=== PATIENT | male | born 1965 | race Caucasian/White ===

== ENCOUNTER 2017-06-24 03:02 | Emergency (ER) | payer OTHER ==
[2017-06-24] MEDS ORDERED: IPRATROPIUM/ALBUTEROL 3 ML NEB INH STA (03:21)
[2017-06-24] MEDS ORDERED: IPRATROPIUM/ALBUTEROL 3 ML NEB INH ONE (03:36)
[2017-06-24 03:41] LABS: BASOPHILS # (AUTO) 0.1 10^3/uL (0.0-0.1); BASOPHILS % (AUTO) 1.1 %; EOSINOPHILS # (AUTO) 0.4 10^3/uL (0.0-0.7); EOSINOPHILS % (AUTO) 5.4 %; HCT - HEMATOCRIT 46.1 % (42.0-52.0); HGB - HEMOGLOBIN 15.9 g/dL (14.0-18.0); LYMPHOCYTES # (AUTO) 2.8 10^3/uL (1.5-3.5); LYMPHOCYTES % (AUTO) 40.3 %; MEAN CORPUSCULAR HEMOGLOBIN 31.2 pg (27.0-31.0); MEAN CORPUSCULAR HGB CONC 34.4 g/dL (32.0-36.0); MEAN CORPUSCULAR VOLUME 90.6 fL (80.0-94.0); MEAN PLATELET VOLUME 7.6 fL (7.4-11.4); MONOCYTES # (AUTO) 0.8 10^3/uL (0.0-1.0); MONOCYTES % (AUTO) 11.4 %; NEUTROPHILS # (AUTO) 2.9 10^3/uL (1.5-6.6); NEUTROPHILS % (AUTO) 41.8 %; NUCLEATED RED BLOOD CELLS AUTO 0.1 /100WBC; RED BLOOD COUNT 5.09 10^6/uL (4.70-6.10)
--- NOTE | 2017-06-24 03:49 | ED Physician Documentation ---
PD HPI DYSPNEA - Stated complaint Stated Complaint: [facility] - Chief complaint Chief Complaint: Resp - History obtained from History obtained from: Patient - History of Present Illness Timing - onset: How many weeks ago (1) Timing - onset during: Rest Timing - details: Now resolved Improved by: No: O2 Associated symptoms: No: Fever, Wheezing Similar symptoms before: No diagnosis, Work up / diagnostics Recently seen: Not recently seen - Additional information Additional information: Patient is a 51 year old male with no significant past medical history who is presenting to the emergency department for left sided abnormal lung sounds. Patient states that it has been going on for about a week and it has become progressively worse. Patient states that he went to see his doctor who did a chest x-ray and it was within normal limits. Patient states that he was started on doxy for atypical pneumonia, but it didn't respond and it kept getting worse. Patient was worried about a possible blood clot so he wanted to come get checked. Review of Systems Constitutional: denies: Fever, Chills Eyes: reports: Reviewed and negative Ears: reports: Reviewed and negative Nose: reports: Reviewed and negative Throat: denies: Oral lesions / sores, Sore throat Cardiac: denies: Chest pain / pressure, Palpitations, Pedal edema Respiratory: reports: Cough, Wheezing GI: denies: Nausea, Vomiting : reports: Reviewed and negative Skin: denies: Rash, Lesions Musculoskeletal: denies: Neck pain, Back pain, Extremity pain, Extremity swelling Neurologic: reports: Reviewed and negative Psychiatric: reports: Reviewed and negative Endocrine: reports: Reviewed and negative Immunocompromised: denies: Immunocompromised PD PAST MEDICAL HISTORY - Past Medical History Past Medical History: Yes Cardiovascular: High cholesterol - Past Surgical History Past Surgical History: Yes General: Appendectomy - Present Medications Home Medications: Ambulatory Orders Medication Instructions Recorded Confirmed Atenolol 1 tab PO DAILY 06/24/17 06/24/17 - Allergies Allergies/Adverse Reactions: Allergies Allergy/AdvReac Type Severity Reaction Status Date / Time No Known Drug Allergies Allergy Verified 06/24/17 03:47 - Social History Does the pt smoke?: No Smoking Status: Never smoker Does the pt drink ETOH?: Yes Does the pt have substance abuse?: No - Immunizations Immunizations are current?: Yes - POLST Patient has POLST: No PD ED PE NORMAL - Vitals Vital signs reviewed: Yes - General General: Alert and oriented X 3, No acute distress, Well developed/nourished - HEENT HEENT: Atraumatic, PERRL, Pharynx benign - Neck Neck: Supple, no meningeal sign, No JVD - Abdomen Abdomen: Soft, Non tender, Non distended - Derm Derm: Normal color, Warm and dry, No rash - Extremities Extremities: No deformity, Normal ROM s pain, No edema, No calf tenderness / cord - Neuro Neuro: Alert and oriented X 3, No motor deficit, No sensory deficit, Normal speech - Psych Psych: Normal mood, Normal affect PD ED PE EXPANDED - Cardiac Cardiac: Tachy - Respiratory Respiratory: Rhonchi, Left upper lobe, Left lower lobe Results - Vitals Vitals: Vital Signs - 24 hr 06/24/17 06/24/17 06/24/17 03:05 03:30 03:41 Temperature 36.4 C L Heart Rate 116 H 92 95 Respiratory 16 16 14 Rate Blood Pressure 147/87 H 125/85 H O2 Saturation 99 99 Oxygen O2 Source Room air - EKG (time done) 0316 Rate: Rate (enter#) (117) Rhythm: Sinus tachycardia [place]: Normal Compare to prior EKG: Old EKG unavailable - Labs Labs: Laboratory Tests 06/24/17 06/24/17 06/24/17 03:23 03:23 03:23 WBC 7.0 RBC 5.09 Hgb 15.9 Hct 46.1 MCV 90.6 MCH 31.2 H MCHC 34.4 RDW 13.0 Plt Count 278 MPV 7.6 Neut # 2.9 Lymph # 2.8 Bent # 0.8 Eos # 0.4 Baso # 0.1 Absolute Nucleated RBC 0.00 Nucleated RBC % 0.1 D-Dimer < 200.0 L Sodium 140 Potassium 3.7 Chloride 102 Carbon Dioxide 25 Anion Gap 13.0 BUN 14 Creatinine 1.0 Estimated GFR (MDRD) 78 L Glucose 127 H Calcium 9.6 Total Bilirubin 0.5 AST 20 ALT 29 Alkaline Phosphatase 69 Troponin I B-Natriuretic Peptide Total Protein 7.1 Albumin 4.0 Globulin 3.1 Albumin/Globulin Ratio 1.3 Lipase 34 06/24/17 06/24/17 03:23 03:23 WBC RBC Hgb Hct MCV MCH MCHC RDW Plt Count MPV Neut # Lymph # Bent # Eos # Baso # Absolute Nucleated RBC Nucleated RBC % D-Dimer Sodium Potassium Chloride Carbon Dioxide Anion Gap BUN Creatinine Estimated GFR (MDRD) Glucose Calcium Total Bilirubin AST ALT Alkaline Phosphatase Troponin I < 0.04 B-Natriuretic Peptide 9 Total Protein Albumin Globulin Albumin/Globulin Ratio Lipase - Rads (name of study) chest x-ray Radiology: Final report received (normal chest x-sanjay) PD MEDICAL DECISION MAKING - ED course Complexity details: reviewed old records, reviewed results, re-evaluated patient , considered differential, d/w patient ED course: Patient was seen and examined at bedside. ekg was performed and showed sinus tach. IV access was gained and labs were drawn. Patient was treated with a nebulizer treatment with no change. Patient's diagnostic including troponin and d-dimer where negative, as was his chest x-ray. patient was made aware of the findings and was comfortable with discharge home and outpatient follow up. Departure - Departure Disposition: 01 Home, Self Care Clinical Impression: Rhonchi at left lung base Condition: Good Instructions: Chest and Lung Probs Follow-Up: primary,care provider [Other] - As Needed Comments: Your diagnostics today were within normal limits. there were no major abnormalities. It is difficult to say what is exactly causing your symptoms. If your sputum cultures grow anything out you will be called with results. You should follow up with your pcp if your symptoms persist for possible CT or diagnostic bronchoscopy. You may return to the emergency department at any time for new, worsening or uncontrollable symptoms.
[2017-06-24 03:56] LABS: ALBUMIN/GLOBULIN RATIO 1.3 (1.0-2.2); BILIRUBIN,TOTAL 0.5 mg/dL (0.2-1.0); CALCIUM 9.6 mg/dL (8.5-10.3); POTASSIUM 3.7 mmol/L (3.5-5.0); TOTAL PROTEIN 7.1 g/dL (6.7-8.2)
--- NOTE | 2017-06-24 04:39 | XRAY Preliminary Report ---
Exam: XR CHEST 2 VIEW PA/LAT IMPRESSION: 1. No acute abnormality seen in the chest. [facility] SITE ID: [id number]
--- NOTE | 2017-06-24 04:42 | XRAY Report ---
EXAM: CHEST RADIOGRAPHY EXAM DATE: 06/24/2017 04:33 AM. CLINICAL HISTORY: Left sided wheezing. COMPARISON: None. TECHNIQUE: 2 views. FINDINGS: Lungs/Pleura: No alveolar consolidation or pleural effusion. No pneumothorax. Mediastinum: Heart and mediastinal contours are unremarkable. Other: None. IMPRESSION: 1. No acute abnormality seen in the chest. [facility] Referring Provider Line: [phone] SITE ID: [id number]
[2017-06-24 04:51] VITALS: BP 137/92
== END 2017-06-24 04:56 | disposition home or self-care (01) ==
LOC: ED 03:02
DX: R09.89 Other specified symptoms and signs involving the circulatory and respiratory systems (principal); R05 Cough; R06.2 Wheezing; E78.00 Pure hypercholesterolemia, unspecified
CPT/HCPCS: 36415; 71020; 80053; 83690; 83880; 84484; 85025; 85379; 87070; 87205; 87389; 93005; 94640; 99283; 99284; J7620